=== PATIENT | female | born 2000 | race Caucasian/White ===

== ENCOUNTER 2022-06-27 07:49 | Emergency (ER) | payer OTHER, SELFPAY ==
[2022-06-27 07:54] VITALS: BP 118/62; PULSE 86; RESP 17; TEMP 36.6; O2SAT 100
[2022-06-27 08:16] LABS: Basophils Percent Auto 0.3 % (0.2-1.2); Eosinophils Percent Auto 0.4 % (0-4.4); Hematocrit 38.1 % (37.0-47.0); Hemoglobin 12.7 g/dL (12.0-15.0); Immature Granulocyte Absolute 0.05 K/mm3 (0.00-0.031); Immature Granulocyte Percent A 0.7 % (0-0.5); Lymphocytes Percent Auto 21.1 % (18.3-44.2); Mean Corpuscular HGB Conc 33.3 g/dl (32-36); Mean Corpuscular Hemoglobin 28.6 pg (26-34); Mean Corpuscular Volume 85.8 fl (80-100); Mean Platelet Volume 10.8 fl (7.4-10.4); Monocytes Absolute Auto 0.7 K/mm3 (0.1-0.6); Monocytes Percent Auto 9.3 % (2.6-8.5); Neutrophils Absolute Auto 4.8 K/mm3 (1.3-6.7); Neutrophils Percent Auto 68.2 % (45.5-73.1); Platelet Count Result 222 k/mm3 (150-375); Red Blood Count 4.44 M/mm3 (4.2-5.4); Red Cell Distribution Width 12.5 % (11.5-14.5); White Blood Count 7.1 K/mm3 (4.5-10.0)
[2022-06-27 08:28] LABS: Alanine Aminotransferase 65 U/L (6-35); Albumin Level 4.5 g/dL (3.5-5.1); Alkaline Phosphatase 64 U/L (38-126); Anion Gap 11 mmol/L (8-16); Aspartate Amino Transferase 38 U/L (14-36); Bilirubin,Total 0.4 mg/dL (0.2-1.3); Blood Urea Nitrogen 5 mg/dL (7-17); Calcium 9.1 mg/dL (8.4-10.2); Carbon Dioxide 26 mmol/L (22-30); Chloride 100 mmol/L (98-107); Estimated CRCL calculation 124 ml/min; Estimated Glomerular Filt Rate > 60; Glucose 87 mg/dL (65-110); Lipase 22 U/L (23-300); Potassium 3.8 mmol/L (3.4-5.0); Sodium 137 mmol/L (137-145)
--- NOTE | 2022-06-27 08:28 | ED.NAVMDI ---
HPI - Nausea/Vomiting/Diarrhea General Chief complaint: Nausea/Vomiting/Diarrhea Stated complaint: N/V 5 weeks ? Time Seen by Provider: 06/27/22 07:55 History of Present Illness HPI Narrative: This is a 22-year-old female, essential. 10 May 2022, G1, P0, presents to the emergency department complaining of nausea vomiting for the past several days. She states she has had intermittent vomiting with variety of different foods, but has been able to tolerate oral fluids and some vegetables. She is primarily concerned about what she can or cannot eat. She states she had a positive home test and was evaluated at an outside hospital with confirmed . Related Data Allergies Allergy/AdvReac Type Severity Reaction Status Date / Time No Known Allergies Allergy Verified 06/27/22 07:58 Review of Systems Review of Systems: CONSTITUTIONAL: Denies fever, chills, or sweats. EYES: Denies visual changes, redness, or discharge. ENT: Denies rhinorrhea, congestion, sore throat, or otalgia. CARDIOVASCULAR: Denies chest pain, palpitations, or edema. RESPIRATORY: Denies cough or dyspnea. GASTROINTESTINAL: +nausea, vomiting, Denies abdominal pain, or diarrhea. GENITOURINARY: Denies dysuria or hematuria. SKIN: Denies rash or itching. MUSCULOSKELETAL: Denies back pain, joint pain, or myalgia. NEUROLOGIC: Denies headache, numbness, dizziness, or weakness. PSYCHIATRIC: Denies anxiety or depression. Exam Narrative: GENERAL: Well-appearing, well-nourished, and in no acute distress. HEAD: Normocephalic, atraumatic. EYES: PERRLA and EOMI. ENT: Nares clear, no rhinorrhea or epistaxis. Mucous membranes moist. Oropharynx without tonsillar hypertrophy exudate or other lesions. NECK: Supple. No adenopathy or masses. No carotid bruits or JVD CHEST: Clear to auscultation. No respiratory distress. No wheezes rales or rhonchi HEART: Regular rate and rhythm. No murmur heard. Normal peripheral pulses. ABDOMEN: Soft, nontender, nondistended, normal active bowel sounds. EXTREMITIES: Normal range of motion. No edema. SKIN: Warm, dry, no rash. NEURO: No focal deficits. Alert and oriented x3. PSYCH: Normal mood and affect. Course Course Emergency Course: 08:25 - Bedside ultrasound demonstrates an intrauterine . There is no noted free abdominal fluid. Reviewed patient's provided chart from outside hospital (06/15/2022). Serum hCG at that time was 1999. A formal ultrasound demonstrated intrauterine with pole but no other discernible anatomy. 09:30 - Reassessed patient, she states her nausea has improved. Labs demonstrate minimal elevation of ALT AST but otherwise unremarkable. Urinalysis is not concerning for UTI. 10:30 - Hcg rising appropriately. Patient tolerated p.o. challenge. Will discharge with OB follow-up as previous scheduled of this month. Discussed return emergency precautions including signs or symptoms of intractable nausea vomiting and acute abdomen. The patient voiced understanding is comfortable with the plan. All questions answered to her satisfaction. Vital Signs Vital signs: Vital Signs Temperature 98 F 06/27/22 07:54 Pulse Rate 86 06/27/22 07:54 Respiratory Rate 17 06/27/22 07:54 Blood Pressure 118/62 06/27/22 07:54 Pulse Oximetry 100 06/27/22 07:54 Oxygen Delivery Room Air 06/27/22 07:54 Temperature 98 F 06/27/22 07:54 Pulse Rate 75 06/27/22 10:55 Respiratory Rate 16 06/27/22 10:55 Blood Pressure 104/62 06/27/22 10:55 Pulse Oximetry 100 06/27/22 10:55 Oxygen Delivery Room Air 06/27/22 07:54 MDM - Nausea/Vomiting/Diarrhea MDM Narrative Medical decision making narrative: Plan: Labs, bedside ultrasound, IV fluids, antiemetics, UA, reassess Differential Diagnosis Differential diagnosis: Likely gastroenteritis, dehydration and other (Hyperemesis gravidarum, metabolic abnormality, , other) Lab Data Result diagrams: 06/27/22 08
[2022-06-27 08:33] LABS: Appearance Urine Clear (Clear); Bilirubin Urine 1+ (Negative); Blood Urine Negative (Negative); Color Urine Yellow (Yellow); Glucose Urine UA Negative (Negative); Ketones Urine Negative (Negative); Leukocyte Esterase Ur Negative LEU/UL (Negative); Nitrate Urine Negative (Negative); Protein Urine Trace mg/dL (Negative); Urobilinogen Urine 0.2 mg/dL (<2.0)
[2022-06-27] MEDS: LACTATED RINGERS 1,000 ML 999 ML IV CONT (08:35)
[2022-06-27] MEDS: PROMETHAZINE HCL 25 MG/ML AMPUL 12.5 MG IV PUSH (08:35)
[2022-06-27 08:37] VITALS: BP 102/67; PULSE 65; RESP 18; O2SAT 100
[2022-06-27 08:41] LABS: Bacteria Urine Trace /hpf; Mucus Urine Heavy /lpf; RBC Urine 0-2 /hpf (0-2); Squamous Epithelial Cell Urine Few /hpf (Few); WBC Urine 0-3 /hpf
[2022-06-27 08:42] LABS: Add Urine Microscopic? YES
[2022-06-27 10:55] VITALS: BP 104/62; PULSE 75; RESP 16; O2SAT 100
== END 2022-06-27 10:56 | disposition home or self-care (01) ==
PROVIDERS: Emergency Provider Preventive Medicine Aerospace Medicine; PCP Physician Assistant
DX: O21.9 Vomiting of pregnancy, unspecified (principal); Z3A.01 Less than 8 weeks gestation of pregnancy
CPT/HCPCS: 36415; 80053; 81001; 81025; 83690; 84702; 85025; 96361; 96374; 99284; J2550; J7120

== ENCOUNTER 2022-08-09 12:50 | Emergency (ER) | payer OTHER, SELFPAY ==
[2022-08-09 13:03] VITALS: BP 132/76; PULSE 119; RESP 18; TEMP 36.8; O2SAT 100
--- NOTE | 2022-08-09 13:54 | ED.GENADULT ---
HPI - General Adult General Chief complaint: Headache Stated complaint: headache, vomiting Time Seen by Provider: 08/09/22 13:42 History of Present Illness HPI narrative: 22-year-old female presents for evaluation of vomiting, dull frontal headache, right ear pain, congestion x24 hours. No sick contacts. After history obtained father who is at bedside has informed me that he thinks it may be related to patient's . Patient admits to being approximately 12 weeks . She denies abdominal pain, vaginal bleeding, discharge. Related Data Allergies Allergy/AdvReac Type Severity Reaction Status Date / Time No Known Allergies Allergy Verified 06/27/22 07:58 Review of Systems Review of Systems: CONSTITUTIONAL: Denies fever, chills, or sweats. EYES: Denies visual changes, redness, or discharge. ENT: Denies rhinorrhea, congestion, sore throat, or otalgia. CARDIOVASCULAR: Denies chest pain, palpitations, or edema. RESPIRATORY: Denies cough or dyspnea. GASTROINTESTINAL: Denies abdominal pain, nausea, vomiting, or diarrhea. GENITOURINARY: Denies dysuria or hematuria. SKIN: Denies rash or itching. MUSCULOSKELETAL: Denies back pain, joint pain, or myalgia. NEUROLOGIC: Denies headache, numbness, or weakness. PSYCHIATRIC: Denies anxiety or depression. Exam Narrative: GENERAL: Well-appearing, well-nourished, and in no acute distress. HEAD: Normocephalic, atraumatic. EYES: PERRLA and EOMI. ENT: Nares clear, no rhinorrhea or epistaxis. Mucous membranes moist. NECK: Supple. CHEST: Clear to auscultation. No respiratory distress. HEART: Regular rate and rhythm. No murmur heard. Normal peripheral pulses. ABDOMEN: Soft, nontender, nondistended, normal active bowel sounds. EXTREMITIES: Normal range of motion. No edema. SKIN: Warm, dry, no rash. NEURO: No focal deficits. Alert and oriented x3. PSYCH: Normal mood and affect. Course Vital Signs Vital signs: Vital Signs Temperature 98.3 F 08/09/22 13:03 Pulse Rate 119 H 08/09/22 13:03 Respiratory Rate 18 08/09/22 13:03 Blood Pressure 132/76 08/09/22 13:03 Pulse Oximetry 100 08/09/22 13:03 Temperature 98.3 F 08/09/22 13:03 Pulse Rate 119 H 08/09/22 13:03 Respiratory Rate 18 08/09/22 13:03 Blood Pressure 132/76 08/09/22 13:03 Pulse Oximetry 100 08/09/22 13:03 Medical Decision Making MDM Narrative Medical decision making narrative: 23-year-old female presents for upper respiratory congestion, headache, ear pain and vomiting. Of note patient did not disclose her to staff when asked. Patient's father has informed me that she is in fact 12 weeks after initial evaluation. Vital Signs Vital Signs: Vital Signs Temperature 98.3 F 08/09/22 13:03 Pulse Rate 119 H 08/09/22 13:03 Respiratory Rate 18 08/09/22 13:03 Blood Pressure 132/76 08/09/22 13:03 Pulse Oximetry 100 08/09/22 13:03 Temperature 98.3 F 08/09/22 13:03 Pulse Rate 119 H 08/09/22 13:03 Respiratory Rate 18 08/09/22 13:03 Blood Pressure 132/76 08/09/22 13:03 Pulse Oximetry 100 08/09/22 13:03 Discharge Plan Discharge Prescriptions: No Action pyridoxine (vitamin B6) 25 mg tablet 25 mg PO Q6H PRN (Reason: nausea and vomiting) Qty: 60 0RF Follow-up/Referrals: Connie,VÍCTOR Claudio [Primary Care Provider] -
[2022-08-09] MEDS: LACTATED RINGERS 1,000 ML 999 ML IV CONT ×2 (14:11→14:51)
[2022-08-09] MEDS: KETOROLAC 15 MG/ML VIAL (*BKC) IV PUSH (14:11)
[2022-08-09] MEDS: METOCLOPRAMIDE HCL INJ 10 MG/2 ML VIAL IV PUSH (14:11)
[2022-08-09] MEDS: diphenhydrAMINE HCl INJ 50 MG/ML VIAL 25 MG IV PUSH (14:11)
[2022-08-09 14:22] LABS: Basophils Percent Auto 0.2 % (0.2-1.2); Eosinophils Percent Auto 0.4 % (0-4.4); Hematocrit 36.9 % (37.0-47.0); Hemoglobin 12.6 g/dL (12.0-15.0); Immature Granulocyte Absolute 0.02 K/mm3 (0.00-0.031); Immature Granulocyte Percent A 0.4 % (0-0.5); Lymphocytes Absolute Auto 0.53 K/mm3 (0.9-3.2); Lymphocytes Percent Auto 11.9 % (18.3-44.2); Mean Corpuscular HGB Conc 34.1 g/dl (32-36); Mean Corpuscular Hemoglobin 29.2 pg (26-34); Mean Corpuscular Volume 85.6 fl (80-100); Mean Platelet Volume 11.7 fl (7.4-10.4); Monocytes Absolute Auto 0.4 K/mm3 (0.1-0.6); Monocytes Percent Auto 9.2 % (2.6-8.5); Neutrophils Absolute Auto 3.5 K/mm3 (1.3-6.7); Neutrophils Percent Auto 77.9 % (45.5-73.1); Platelet Count Result 142 k/mm3 (150-375); Red Blood Count 4.31 M/mm3 (4.2-5.4); Red Cell Distribution Width 12.5 % (11.5-14.5); White Blood Count 4.5 K/mm3 (4.5-10.0)
[2022-08-09 14:23] LABS: Appearance Urine Clear (Clear); Bilirubin Urine 1+ (Negative); Blood Urine Negative (Negative); Color Urine Yellow (Yellow); Glucose Urine UA Negative (Negative); Ketones Urine 4+ mg/dL (Negative); Leukocyte Esterase Ur Negative LEU/UL (Negative); Nitrate Urine Negative (Negative); Protein Urine 1+ mg/dL (Negative); Specific Grav Ur >= 1.030 (1.001-1.035); Urobilinogen Urine 0.2 mg/dL (<2.0)
[2022-08-09 14:31] LABS: Alanine Aminotransferase 32 U/L (6-35); Albumin Level 4.4 g/dL (3.5-5.1); Alkaline Phosphatase 57 U/L (38-126); Anion Gap 12 mmol/L (8-16); Aspartate Amino Transferase 24 U/L (14-36); Bilirubin,Total 0.6 mg/dL (0.2-1.3); Blood Urea Nitrogen 3 mg/dL (7-17); Calcium 9.2 mg/dL (8.4-10.2); Carbon Dioxide 21 mmol/L (22-30); Chloride 102 mmol/L (98-107); Estimated CRCL calculation 135 ml/min; Estimated Glomerular Filt Rate > 60; Glucose 71 mg/dL (65-110); Lipase 35 U/L (23-300); Potassium 3.5 mmol/L (3.4-5.0); Sodium 135 mmol/L (137-145)
[2022-08-09 15:01] LABS: Bacteria Urine Trace /hpf; Mucus Urine Heavy /lpf; Squamous Epithelial Cell Urine Few /hpf (Few)
[2022-08-09 15:07] LABS: Add Urine Microscopic? YES
[2022-08-09 15:34] LABS: SARS-CoV-2 RNA PCR Negative
[2022-08-09 17:48] VITALS: BP 138/86; PULSE 98; RESP 16; O2SAT 99
[2022-08-09 22:36] LABS: Influenza A QL RT-PCR Negative (Negative); Influenza B QL RT-PCR Negative (Negative)
== END 2022-08-09 17:49 | disposition home or self-care (01) ==
PROVIDERS: Emergency Medicine; Emergency Provider Emergency Medicine; PCP Physician Assistant
DX: O21.9 Vomiting of pregnancy, unspecified (principal); Z3A.12 12 weeks gestation of pregnancy; Z20.822 Contact with and (suspected) exposure to COVID-19
CPT/HCPCS: 36415; 80053; 81001; 83690; 85025; 87502; 96361; 96374; 96375; 99284; C9803; J1200; J1885; J2765; J7120; U0003; U0005

== ENCOUNTER 2023-02-12 16:11 | Inpatient (IN) | payer OTHER, SELFPAY ==
[2023-02-12] VITALS (15 sets, daily range): BP systolic 107–145; BP diastolic 53–95; PULSE 65–97; TEMP 37–37.3; BMI 27.3
[2023-02-12 17:06] LABS: Basophils Percent Auto 0.4 % (0.2-1.2); Eosinophils Percent Auto 0.5 % (0-4.4); Hematocrit 33.7 % (37.0-47.0); Hemoglobin 10.8 g/dL (12.0-15.0); Immature Granulocyte Absolute 0.03 K/mm3 (0.00-0.031); Immature Granulocyte Percent A 0.4 % (0-0.5); Immature Platelet Fraction Pct 19.8 % (0.9-11.2); Lymphocytes Absolute Auto 1.54 K/mm3 (0.9-3.2); Lymphocytes Percent Auto 19.5 % (18.3-44.2); Mean Corpuscular Volume 87.3 fl (80-100); Mean Platelet Volume 13.5 fl (7.4-10.4); Monocytes Absolute Auto 0.6 K/mm3 (0.1-0.6); Monocytes Percent Auto 8.1 % (2.6-8.5); Neutrophils Absolute Auto 5.6 K/mm3 (1.3-6.7); Neutrophils Percent Auto 71.1 % (45.5-73.1); Platelet Count Result 139 k/mm3 (150-375); Red Blood Count 3.86 M/mm3 (4.2-5.4); Red Cell Distribution Width 14.7 % (11.5-14.5); White Blood Count 7.9 K/mm3 (4.5-10.0)
[2023-02-12] MEDS: DINOPROSTONE 10 MG VAG INSERT VAGINAL (17:13)
--- NOTE | 2023-02-12 17:23 | LDADM ---
This patient, Christiana Gonzalez, was admitted to Labor/Delivery/Recovery 109 on 02/12/23 at 16:11. Plans for labor, pain management and were discussed with patient. Patient/family oriented to hospital policies and general routines including ID bracelet, bed and alarms, visiting hours, pain management, procedures, bathroom and other care routines, personal items, smoking policy, room service/diet and guest tray routines, infant security routines, and visiting hours. Patient/Family are encouraged to report perceived risks to care and to ask questions if they do not understand what they are told or what they should do. See [facility] for further documentation.
[2023-02-12] MEDS: LACTATED RINGERS 1,000 ML 125 ML IV CONT (18:38)
[2023-02-12] MEDS: AMPICILLIN 2 GM/NS 100 ML 2 GM/100 ML BAG IVPB (18:38)
[2023-02-12] MEDS: ZOLPIDEM TARTRATE (*CRX) 5 MG TABLET PO (21:04)
[2023-02-12] MEDS: AMPICILLIN 1 GM/NS 50 ML 1 GM/50 ML BAG IVPB (23:08)
[2023-02-13] VITALS (12 sets, daily range): BP systolic 115–139; BP diastolic 69–88; PULSE 64–99; RESP 14–16; TEMP 36.4–37.2; O2SAT 99–100
[2023-02-13] MEDS: OXYTOCIN 30 UNITS/NS 500 ML 30 UNITS/500 ML BAG 999 UNITS IV CONT (02:15)
--- NOTE | 2023-02-13 02:32 | P.PCNOB_ITS ---
OB - Delivery Note Procedure Delivery date: 02/13/23 Procedure: Induction method: Per Cervidil Protocol Delivery augmentation: Rupture of Membranes Delivery monitor: External Uterine Route of delivery: Episiotomy description: None Laceration Description: None Specimen: No Quantitative Blood Loss (ml): 110 Anesthesia type: None [place] Baby Date of : 02/13/23 Time of : 02:15 Weeks of gestation at delivery: 39 Infant gender: Female Weight (pounds): 6 Weight (ounces): 7 presentation: vertex position: Left Occiput Anterior Placenta delivery description: Spontaneous Cord Vessel Description: 3 Vessels, Nuchal Cord (x1), Loose, Clamped/Cut, Delayed Cord Clamping and Around Body (x1) score one minute: 8 score five minutes: 9 Narrative: mother and baby skin to skin in stable condition
--- NOTE | 2023-02-13 02:32 | WPDOBADMIT ---
Obstetrics - Admit Note Admission Note: record reviewed. No pertinent additions to the history and/or any subsequent changes in the physical findings that are not consistent with the expected course of the were found. elective IOL, anticipate vaginal delivery Additions to the history and/or subsequent changes in the physical findings follow. None.
[2023-02-13] MEDS: OXYTOCIN 30 UNITS/NS 500 ML 30 UNITS/500 ML BAG 125 UNITS IV CONT (02:54)
[2023-02-13] MEDS: LACTATED RINGERS 1,000 ML 125 ML IV CONT (02:56)
[2023-02-13] MEDS: IBUPROFEN 600 MG TABLET PO (04:37)
[2023-02-13] MEDS: WITCH HAZEL 40 PADS 1 PAD TOPICAL (04:38)
[2023-02-13] MEDS: BENZOCAINE 20% AER SPR (*SP) 56 GM CAN 1 SPRAY TOPICAL (04:38)
--- NOTE | 2023-02-13 04:50 | PC.NURSE ---
Patient transferred to post room # 286 via (W/C). Support person present. Oriented to unit, room, information board, rooming in, admission packet and security measures. Patient verbalizes understanding.
[2023-02-13] MEDS: MULTIVIT/MIN/PREN/FOL AC/IRON TABLET 1 TAB PO (08:09)
[2023-02-13] MEDS: DOCUSATE SODIUM 100 MG CAPSULE PO (08:10)
--- NOTE | 2023-02-13 09:31 | PC.NURSE ---
On 02/13/23, the student, Jovan Hand, provided care and completed [facility] documentation on this patient. I have reviewed the student's documentation and agree with the findings.
--- NOTE | 2023-02-13 12:05 | PC.NURSE ---
[id number] Introductions were made, then consulted with patient to assess needs related to . Mother led the conversation with her?plans to feed?her infant, the?experience so far and states she was able to independently latch infant without pain the second time infant breastfed. is not in the room at this time. Resources provided for inpatient and outpatient services with a business card and name written on the white board. Mother voiced understanding of information and will call if there is a request for assistance. Reported to the primary RN. [id number] 's assessment was complete in the nursery and RN took infant to mother to encourage . Encouraged understanding of the benefits of skin to skin (demonstrating unwrapping infant and placing upright on her chest), stimulating with massage touch, changing positions to encourage wakefulness, how to watch for early feeding cues, responsive feeding, feeding on demand (aiming for 8-12 times in 24 hours, about every 2-3 hours), milk production, hand expression, building/maintaining a milk supply, duration of feeding, signs of adequate intake/output and how to record on the feeding sheet. Reviewed positioning and ear, shoulder, hip alignment, supporting the breast to facilitate a deep latch, asymmetrical latch (off-center), leading with the chin with a big, open, wide gape and body close to mother. After a great deal of encouragement and practicing hand expression, was spoon fed the hand expressed human milk, then latched optimally to the right breast in football position. Education given to parents of how to visualize suck/swallow ratios and listen for drinking at the breast. was able to maintain latch without discomfort to mother. Nipple care reviewed with optimal latch and good positioning. Reminding mother of comfort measures of healing with a warm and wet washcloth to rinse breast, then leave open to air-dry as needed. Reviewed good handwashing when or touching the breast/nipples to prevent infection. Resources used to facilitate learning were used with the visual handouts, tool, and practicing education given to build confidence with mother. After 10 minutes infant self detached. RN assisted mother with practicing optimal latching to the left breast and parents reminded of how to visually watch, listen for swallowing at the breast along with infants hands and arms becoming relaxed with more swallows. Mother denies pain and father was shown different ways to support success for mother and baby. Mother voiced understanding of skin to skin, stimulating with massage touch, responsive feedings, hand expressed colostrum, talking to to encourage if it has been 2 -2.5 hours since the start of the last , to call if infant does not latch, or if there is discomfort with . Resources provided for inpatient/outpatient with business card, feeding sheet and the mom/baby guide. Parents voiced understanding of information, demonstrated learning and will call if there is a request for assistance. Reported to the primary RN. [phone] Consulted with patient to assess needs related to after patient requested. Mother works well with her infant with encouragement. Reviewed working with , supporting breast and how to protect the nipples with an optimal deep latch, good positioning, and good hand washing. Encouraged understanding the benefits of skin to skin, responding to feeding cues, frequencies of feeding 8-12 times in 24 hours (approximately 2-3 hours), duration of feedings, milk production, intake/output feeding sheet and signs of adequate intake encouraging swallowing at the breast. Reviewed positioning and alignment, supporting breast, off-centered (asymmetrical latch) and leading with the chin with big, open, wide gape. Mother is demonstrating more confidence than the last practice session. Mi
[2023-02-13 12:33] LABS: Rapid Plasma Reagin Non-Reactive (NonReactive)
[2023-02-14 05:41] LABS: Hematocrit 33.5 % (37.0-47.0); Hemoglobin 10.6 g/dL (12.0-15.0)
[2023-02-14 08:20] VITALS: BP 106/60; PULSE 59; RESP 16; TEMP 37; O2SAT 100
--- NOTE | 2023-02-14 08:24 | PM.OBPNVD ---
OB - PN: Subj Subjective Date/time seen: 02/14/23 08:24 Patient comments: no complaints baby status: doing well OB - PN: Obj Data Labs 02/14/23 05:13 Labs: Laboratory Results - last 24 hr 02/12/23 02/14/23 16:57 05:13 Hgb 10.6 L Hct 33.5 L RPR Non-reactive OB - PN A/P Plan day: 1 Plan: routine care Time Spent With Patient Time: Total time spent is greater than 50% in coordination of care (as documented) at patient's floor/unit and/or counseling patient: Time with patient: less than 15 minutes Review of Systems Review of Systems: All systems reviewed & are unremarkable except as noted in HPI and below Exam Narrative: Fundus firm and vaginal flow controlled. No lower ext redness, warmth, or edema. Negative homans. Const: General: comfortable Chest: Breast/axilla inspection: normal inspection of the breasts Resp: Effort & Inspection: normal respiratory effort Cardio: Rate: regular rate GI: GI Palp: Yes Soft to palpation Psych: Appearance: grossly normal Affect: normal affect Attitude: cooperative Thought content: Yes Normal thought content present Judgement: Good judgement present (Psych)
[2023-02-14] MEDS: IBUPROFEN 600 MG TABLET PO (08:26)
[2023-02-14] MEDS: MULTIVIT/MIN/PREN/FOL AC/IRON TABLET 1 TAB PO (08:26)
[2023-02-14] MEDS: MEASLES,MUMPS,RUBELLA VACCINE 0.5 ML VIAL SUB-Q (10:54)
[2023-02-14] MEDS: TETANUS,DIPHTHERIA,AC PERTUSSIS ADULT (0.5 ML) BOOSTRIX IM (10:57)
--- NOTE | 2023-02-14 11:00 | PC.NURSE ---
Patient viewed the discharge video Mother & Baby Care, The First Two Weeks . Patient was given the opportunity and encouraged to ask questions. Patient verbalized understanding of information shared and has been given the mother/baby guide for home reference.
--- NOTE | 2023-02-14 11:32 | PC.NURSE ---
[id number] Purposefully rounded to assess needs. Mother has been attempting to breastfeed, if no latch, then bottle feeding and pumping to stimulate the milk supply. Reinforced education from yesterday with mother and offered assistance with . Mother states she will call if she needs/wants assistance with . Reviewed the importance of consistently pumping to protect the milk supply. Reported to the Primary RN.
[2023-02-15 10:46] VITALS: BP 127/86; PULSE 88; RESP 16; TEMP 36.9; O2SAT 98
--- NOTE | 2023-02-26 08:06 | PM.OBDSVD ---
DS: Admitting Diagnosis Discharge Date 02/14/23 Admitting Diagnosis labor DS: Discharge Diagnosis Discharge Diagnosis (1) Vaginal delivery: Code(s): O80 - Encounter for full-term uncomplicated delivery Status: Acute OB - DS: Summary OB Procedures : None OB Procedures Intrapartum: Spontaneous Vag Delivery OB Procedures: : None Time Spent with Patient Time attestation: Total time spent providing and/or coordinating discharge services: Discharge Plan Discharge Attending physician on discharge: Heather Armenta Consulting providers: Heather Armenta ; Lindsey Gonsales Discharging Clinician: Lindsey Gonsales Patient Disposition: Home, Self-Care Activity: pelvic rest Diet: as tolerated Discharge Instructions: Education: Mom and Baby Guide Given to: Mother Follow-Up: Call your delivering provider's office for an appointment to be seen in: 4- 6 Weeks Mom and baby should come to the [facility] for the follow-up appointment. Appointment Date/Time: February 15, 2023 at 11:00 am What to expect at your follow-up visit: Blood Pressure Check Physical Assessment Call [phone] if you are unable to keep your appointment time. BREAST CARE: * Wear a snug supportive bra. * For engorgement discomfort: Breast Feeding: * Apply warm moist washcloths * Express milk as needed to relieve engorgement * Wear loose clothing Bottle Feeding: * May apply ice packs * For sore nipples: * Identify correct latch-on * Apply warm moist washcloths before and after nursing * Air dry nipples after nursing * May apply Lansinoh cream to nipples PERINEAL CARE: * Until bleeding stops, use your agnes bottle after urinating * Change your pad frequently throughout the day * You may take sitz baths several times a day (fill your bathtub with warm water and soak for 20 minutes.) Do NOT bathe in the water * No tub baths until seen by your physician - You may shower ACTIVITY: * Rest as much as possible. * Do not exercise or lift anything heavier than your baby (such as laundry or other children.) * Avoid stairs or driving as much as possible. * Do not put anything into the vagina. No douching, tampons, or sexual activity until seen by physician. NOTIFY PHYSICIAN IF YOU HAVE ANY QUESTIONS OR IF ANY OF THE FOLLOWING SYMPTOMS OCCUR: * If your vaginal bleeding becomes foul smelling. * If your vaginal bleeding becomes more heavy than a period or if your bleeding changes from pink to bright red. However, you may pass an occasional walnut-sized clot once or twice for the first week . * If you experience a sharp, shooting pain in your calves. * If you discover a hard, reddened area on your breast or if you experience flu-like symptoms. DIET: * Eat regular, well-balanced meals. * Drink plenty of fluids daily. If , drink to thirst. Patient Instructions: Antibiotic Form Stand Alone Forms: General Discharge Information Follow-up/Referrals: Lindsey Gonsales CNM [Certified Nurse Retail Customer Service Representative] - Discharge Medications: Continued PNV #[id number] 30 mg iron-10 mg iron-1 mg capsule 1 cap PO DAILY 30 Days Qty: 30 0RF Date of admission: 02/12/23 16:11 Primary Care Provider: Connie,Ave Cooney Admitting Provider: Dee Cheung Attending physician on admission: Dee Cheung Condition: Stable
== END 2023-02-14 12:18 | disposition home or self-care (01) | DRG 560 ==
LOC: ANHLDR 16:15 → ANHOB2 02-13 05:06
PROVIDERS: Admitting Provider Obstetrics & Gynecology; PCP Physician Assistant; Referring Provider Advanced Practice Midwife; Visit Provider Obstetrics & Gynecology
DX: O69.81X0 Labor and delivery complicated by cord around neck, without compression, not applicable or unspecified (principal); O62.3 Precipitate labor; Z3A.39 39 weeks gestation of pregnancy; Z37.0 Single live birth
CPT/HCPCS: 36415; 85014; 85018; 85025; 85055; 86592; 86850; 86900; 86901; 90710; 90715; A9270; J0290; J2590; J7120